=== PATIENT | female | born 1975 | race Two or more races ===

== ENCOUNTER 2019-05-11 02:09 | Emergency (ER) | payer MEDICAID ==
[~2019-05-11] VITALS: Ht 177.8 cm; Wt 49.9 kg
[2019-05-11] MEDS ORDERED: TRAMADOL HCL50 MG ORAL (02:12)
--- NOTE | 2019-05-11 02:20 | NUR ---
ED Nurse Note: Patient ERICH post fall at home has back pain and stomach pain 10/10.
[2019-05-11 02:21] VITALS: BP 132/78
[2019-05-11 02:29] LABS: BASOPHILS % (AUTO) 0.5 % (0.0-2.0); EOSINOPHILS % (AUTO) 0.6 % (0.0-3.0); HEMOGLOBIN 12.5 G/DL (12.0-16.0); LYMPHOCYTES % (AUTO) 18.8 % (20.0-45.0); MEAN CORPUSCULAR VOLUME 85 FL (80-99); NEUTROPHILS % (AUTO) 75.1 % (45.0-75.0); PLATELET COUNT 233 K/UL (150-450); RED CELL DISTRIBUTION WIDTH 12.6 % (11.6-14.8); WHITE BLOOD COUNT 6.5 K/UL (4.8-10.8)
[2019-05-11] MEDS ORDERED: Morphine Sulfate 4mg/ml Inj (IV USE ONLY) IVP ONE ×2 (02:30→03:00)
[2019-05-11] MEDS ORDERED: Isovue-300 100ml vial INJ PRN (02:30)
--- NOTE | 2019-05-11 02:33 | NUR ---
ED Nurse Note: Consent form for contrast was signed.
--- NOTE | 2019-05-11 02:43 | NUR ---
ED Nurse Note: urine specimen collected and sent down to lab.
[2019-05-11 02:49] LABS: ANION GAP 13 mmol/L (5-15); BLOOD UREA NITROGEN 19 mg/dL (7-18); CALCIUM 9.9 MG/DL (8.5-10.1); CARBON DIOXIDE 26 MMOL/L (21-32); CHLORIDE 103 MMOL/L (98-107); CREATININE 1.1 MG/DL (0.55-1.30); SODIUM 142 MMOL/L (136-145)
[2019-05-11 02:53] LABS: ALANINE AMINOTRANSFERASE 22 U/L (12-78); ALBUMIN 4.7 G/DL (3.4-5.0); ALBUMIN/GLOBULIN RATIO 1.3 (1.0-2.7); ALKALINE PHOSPHATASE 71 U/L (46-116); ASPARTATE AMINO TRANSFERASE 9 U/L (15-37); BILIRUBIN,TOTAL 0.3 MG/DL (0.2-1.0)
--- NOTE | 2019-05-11 03:27 | NUR ---
ED Nurse Note: Patient went down for CT with associate professor of radiology.
[2019-05-11 05:38] LABS: APPEARANCE,URINE CLEAR; BILIRUBIN, URINE NEGATIVE (NEGATIVE); COLOR,URINE PALE YELLOW; GLUCOSE, URINE (UA) NEGATIVE (NEGATIVE); KETONES,URINE NEGATIVE (NEGATIVE); LEUKOCYTE ESTERASE ,URINE 1+ (NEGATIVE); NITRITE,URINE NEGATIVE (NEGATIVE); PH,URINE 7 (4.5-8.0); PROTEIN,URINE 1+ (NEGATIVE); UROBILINOGEN,URINE NORMAL MG/DL (0.0-1.0)
[2019-05-11] MEDS ORDERED: Ketorolac 30mg Inj IV ONE (06:00)
[2019-05-11] MEDS ORDERED: LIDODERM700 M1 TOPIC (06:07)
[2019-05-11] MEDS ORDERED: PERCOCET 5-3251 EACH ORAL (06:07)
[2019-05-11] MEDS ORDERED: IBUPROFEN600 MG ORAL (06:07)
--- NOTE | 2019-05-11 06:18 | NUR ---
ED Nurse Note: Patient cleared for discharge, verbalized understanding of discharge instructions, IV removed, ID band removed. PAtient A&Ox4, ambulatory with pain, vital signs stable prior to departure. PAtient departed with all personal belongings.
[2019-05-11 06:19] VITALS: BP 132/78
--- NOTE | 2019-05-11 09:48 | Diagnostic Imaging Report ---
Indication: Posterior thoracic pain after slip and fall in the kitchen Technique: Spiral acquisitions obtained through the thoracic spine. No IV contrast utilized. Multiplanar reconstructions were generated. Total dose length product 427 mGycm. CTDIvol(s) 0.25x3, 14 mGy. Dose reduction achieved using automated exposure control Comparison: none Findings: Bony alignment is normal. Vertebral body heights are preserved. The disc spaces are preserved. No acute fractures. No dislocations. Small sclerotic focus within the T5 vertebral body probably represents a bone island. The included lungs are unremarkable. The included extra spinal soft tissues are unremarkable. Impression: No acute process T6 vertebral body sclerotic focus, most likely benign bone island This agrees with the preliminary interpretation provided overnight by [facility]. The CT scanner at [facility] is accredited by the [employer] and the scans are performed using protocols designed to limit radiation exposure to as low as reasonably achievable to attain images of sufficient resolution adequate for diagnostic evaluation.
--- NOTE | 2019-05-11 10:35 | Diagnostic Imaging Report ---
Clinical Indication: Abdominal pain after slip and fall in the kitchen Technique: No oral contrast utilized, per emergency room physician request IV administration nonionic contrast. Venous phase spiral acquisition obtained through the abdomen and pelvis. Multiplanar reconstructions were generated. Total dose length product 419.42 mGycm. CTDIvol(s) 8.63 mGy. Dose reduction achieved using automated exposure control Comparison: none Findings: The bones demonstrate bilateral L5 spondylolysis and grade 1 to L5 on S1 spondylolisthesis. There is secondary degenerative change of the L5-S1 disc. There is a slight compression fracture deformity of the L1 vertebral body with approximately 10% height loss anteriorly. No other evidence of acute fracture. No significant soft tissue contusion. The liver demonstrates multiple cysts and multiple subcentimeter low-attenuation lesions which are too small to characterize. Gallbladder, bile ducts, pancreas, spleen, adrenals, kidneys are unremarkable. No retroperitoneal or mesenteric mass or adenopathy. No pelvic mass or adenopathy. Varicosities are seen in the left adnexal region. What may be a normal appendix is equivocally visualized. No evidence of diverticulosis or diverticulitis. No small bowel distention. No free or loculated intraperitoneal gas or fluid is evident. The distal esophagus, stomach, duodenum are unremarkable. Impression: L1 compression fracture. Please refer to separate lumbar spine CT report for details. No other acute osseous trauma Bilateral L5 spondylolysis, grade 1 L5 on S1 spondylolisthesis and secondary degenerative disc disease No evidence of acute solid organ trauma or other osseous trauma Hepatic cysts. Subcentimeter low-attenuation liver lesions, too small to characterize, most likely benign simple cysts or bile hamartomas. No further follow-up necessary Left adnexal region varicosities, may indicate left ovarian venous insufficiency. Correlate with any clinical history of pelvic congestion syndrome that may be present This agrees with the preliminary interpretation provided overnight by [facility]. The CT scanner at [facility] is accredited by the [employer] and the scans are performed using protocols designed to limit radiation exposure to as low as reasonably achievable to attain images of sufficient resolution adequate for diagnostic evaluation.
--- NOTE | 2019-05-11 11:28 | Diagnostic Imaging Report ---
Indications: Lumbar pain after slip and fall in the kitchen Technique: Spiral acquisitions obtained through the lumbar spine. Multiplanar reconstructions were generated. No IV contrast utilized. Total dose length product 354.36 mGycm. CTDIvol(s) 10.54 mGy. Dose reduction achieved using automated exposure control Comparison: none Findings: There is an anterior wedge compression fracture of the L1 vertebral body, predominantly involving the anterior superior endplate and resulting in approximately 10% height loss. As there are fracture lines present suspected this is acute. There is minimal paraspinous edema in this region. The remaining vertebral body heights are preserved. No other acute fractures. There is bilateral L5 spondylolysis, with grade 1-2 L5 on S1 spondylolisthesis and secondary degenerative change of the L5-S1 disc. The sacrum is intact. No significant disc bulge or protrusion, spinal stenosis, or neural foraminal stenosis demonstrated. The included extra spinal soft tissues are unremarkable. Impression: Positive for L1 superior endplate and wedge compression fracture, described. Suspect acute. MRI may be useful for for complete characterization as clinically indicated Bilateral L5 spondylolysis. Associated grade 1-2 L5 on S1 spondylolisthesis and secondary degenerative disc disease at L5-S1. This agrees with the preliminary interpretation provided overnight by [facility]. The CT scanner at [facility] is accredited by the [employer] and the scans are performed using protocols designed to limit radiation exposure to as low as reasonably achievable to attain images of sufficient resolution adequate for diagnostic evaluation.
--- NOTE | 2019-05-13 06:50 | Emergency Room Report ---
History of Present Illness General Chief Complaint: Lower Back Pain or Injury Source: Patient Present Illness HPI 43-year-old female presents ED for evaluation. Brought in by EMS complaining low back pain status post trip and fall. States that she had a mechanical slip and fall tonight in her bathroom around 2 AM. Landed on her back. Denies hitting her head or LOC. Complaining of mid to lower back pain. Sharp, 10 out of 10, radiating to the abdomen. States she has history of chronic back pain. Denies bowel or bladder incontinence. Denies leg or motor weakness. No other aggravating relieving factors. Denies any other associated symptoms Allergies: Coded Allergies: No Known Allergies (Unverified , 05/11/19) Patient History Past Medical History: none Past Surgical History: none Pertinent Family History: none Social History: Denies: smoking, alcohol use, drug use Last Menstrual Period: 2017 Now: No Immunizations: UTD Reviewed Nursing Documentation: PMH: Agreed; PSxH: Agreed Nursing Documentation-PMH Past Medical History: No History, Except For Review of Systems All Other Systems: negative except mentioned in HPI Physical Exam Vital Signs Date Time Temp Pulse Resp B/P (MAP) Pulse Ox O2 Delivery O2 Flow Rate FiO2 05/11/19 02:09 98.8 82 14 132/78 (96) 98 Room Air Sp02 EP Interpretation: reviewed, normal General Appearance: alert, GCS 15, non-toxic, severe distress Head: normocephalic Eyes: bilateral eye normal inspection, bilateral eye PERRL ENT: normal ENT inspection Neck: normal inspection Respiratory: chest non-tender, lungs clear, normal breath sounds, speaking full sentences Cardiovascular #1: regular rate, rhythm, no edema Gastrointestinal: normal bowel sounds, soft, non-distended, no guarding, no rebound, tenderness Rectal: deferred Genitourinary: no CVA tenderness, vertebral tenderness Musculoskeletal: normal inspection Neurologic: alert, oriented x3, responsive, motor strength/tone normal, sensory intact, speech normal Psychiatric: normal inspection, anxious Skin: normal inspection Lymphatic: normal inspection Medical Decision Making Diagnostic Impression: Primary Impression: Compression fracture Additional Impression: Low back pain Qualified Codes: M54.5 - Low back pain ER Course Hospital Course 43-year-old F presents to ED with abdominal pain + back pain s/p fall Differential diagnosis includes- fx, dislocation, contusion Clinical course Patient placed on stretcher. After initial history and physical I ordered labs , pain medications and CT scan Labs - no leukocytosis, electrolytes ok, LFTs normal, UA unremarkable CT T spine shows DJD CT A/P no acute process CT L spine shows L1 compression fx discussed findings with patient. On reassessment pain improved. No focal neurological deficits. Walking in ED. Will discharge to home with appropriate pain management. Will provide orthopedic referral but patient states she does have an orthopedic to follow-up with I feel this is a highly complex case requiring extensive working including EKG/ Rhythm strip, Xray/CT/US, Blood/urine lab work, repeat exams while in ED, and administration of strong opiates/narcotics for pain control, admission to hospital or close patient follow up. Diagnosis - compression fx, low back pain Stable and discharged to home with Rx Motrin, Percocet, Lidoderm. Followup with PMD/ortho. Return to ED if symptoms recur or worsen Labs Test 05/11/19 02:21 05/11/19 05:30 White Blood Count 6.5 K/UL (4.8-10.8) Red Blood Count 4.50 M/UL (4.20-5.40) Hemoglobin 12.5 G/DL (12.0-16.0) Hematocrit 38.0 % (37.0-47.0) Mean Corpuscular Volume 85 FL (80-99) Mean Corpuscular Hemoglobin 27.8 PG (27.0-31.0) Mean Corpuscular Hemoglobin Concent 32.9 G/DL (32.0-36.0) Red Cell Distribution Width 12.6 % (11.6-14.8) Platelet Count 233 K/UL (150-450) Mean Platelet Volume 5.8 FL (6.5-10.1) Neutrophils (%) (Auto) 75.1 % (45.0-75.0) Lymphocytes (%) (Auto) 18.8 % (20.0-45.0) Monocytes (%) (Auto) 5.0 % (1.0-10.0) Eosinophils (%) (Auto) 0.6 % (0.0-3.0) Basophils (%) (Auto) 0.5 % (0.0-2.0) Sodium Level 142 MMOL/L (136-145) Potassium Level 4.0 MMOL/L (3.5-5.1) Chloride Level 103 MMOL/L (98-107) Carbon Dioxide Level 26 MMOL/L (21-32) Anion Gap 13 mmol/L (5-15) Blood Urea Nitrogen 19 mg/dL (7-18) Creatinine 1.1 MG/DL (0.55-1.30) Estimat Glomerular Filtration Rate > 60 mL/min (>60) Glucose Level 98 MG/DL (74-106) Calcium Level 9.9 MG/DL (8.5-10.1) Total Bilirubin 0.3 MG/DL (0.2-1.0) Aspartate Amino Transf (AST/SGOT) 9 U/L (15-37) Alanine Aminotransferase (ALT/SGPT) 22 U/L (12-78) Alkaline Phosphatase 71 U/L (46-116) Total Protein 8.4 G/DL (6.4-8.2) Albumin 4.7 G/DL (3.4-5.0) Globulin 3.7 g/dL Albumin/Globulin Ratio 1.3 (1.0-2.7) Lipase 98 U/L (73-393) Human Chorionic Gonadotropin, Qual Negative (NEGATIVE) Urine Color Pale yellow Urine Appearance Clear Urine pH 7 (4.5-8.0) Urine Specific [place] 1.010 (1.005-1.035) Urine Protein 1+ (NEGATIVE) Urine Glucose (UA) Negative (NEGATIVE) Urine Ketones Negative (NEGATIVE) Urine Blood 3+ (NEGATIVE) Urine Nitrite Negative (NEGATIVE) Urine Bilirubin Negative (NEGATIVE) Urine Urobilinogen Normal MG/DL (0.0-1.0) Urine Leukocyte Esterase 1+ (NEGATIVE) Urine RBC 0-2 /HPF (0 - 2) Urine WBC 5-10 /HPF (0 - 2) Urine Squamous Epithelial Cells Many /LPF (NONE/OCC) Urine Bacteria Few /HPF (NONE) CT/MRI/US Diagnostic Results CT/MRI/US Diagnostic Results #1: Imaging Test Ordered: CT T spine Impression DJD no acute process CT/MRI/US Diagnostic Results #2: Imaging Test Ordered: CT L spine Impression L1 compression fx CT/MRI/US Diagnostic Results #3: Imaging Test Ordered: CT A/P Impression no acute process Last Vital Signs Date Time Temp Pulse Resp B/P (MAP) Pulse Ox O2 Delivery O2 Flow Rate FiO2 05/11/19 06:19 98.8 88 14 132/78 98 Room Air Status: improved Disposition: HOME, SELF-CARE Condition: Stable Scripts Lidocaine (Lidoderm) 1 Each Adh..patch 1 PATCH TOPIC DAILY, #7 PATCH 0 Refills Patch(es) may remain in place for up to 12 hours in any 24-hour period. Prov: Colton Mann MD 05/11/19 Ibuprofen* (MOTRIN*) 600 Mg Tablet 600 MG ORAL Q8H PRN for For Pain, #30 TAB 0 Refills Prov: Colton Mann MD 05/11/19 Oxycodone/Acetaminophen 5-325* (PERCOCET 5-325 MG TABLET*) 1 Each Tablet 1 TAB ORAL Q6H PRN for For Pain, #12 TAB Prov: Colton Mann MD 05/11/19 Referrals: NON PHYSICIAN (PCP) Ehsan Naidu [facility] Open 24 hour /7 days a week by Appointment Only [address] [facility] [address] Patient Instructions: Spinal Compression Fracture Colton Mann MD May 13, 2019 06:50
== END 2019-05-11 06:14 | disposition home or self-care (01) ==
LOC: EDBD 02:09 → EMR 02:47
DX: M54.5 Low back pain (principal); S32.019A Unspecified fracture of first lumbar vertebra, initial encounter for closed fracture; W01.0XXA Fall on same level from slipping, tripping and stumbling without subsequent striking against object, initial encounter; Y92.9 Unspecified place or not applicable; M47.9 Spondylosis, unspecified; K76.89 Other specified diseases of liver; M51.37 Other intervertebral disc degeneration, lumbosacral region
CPT/HCPCS: 36415; 72128; 72131; 74177; 80053; 81003; 83690; 84703; 85025; 96374; 96375; 99284; J1885; J2270; J2405; Q9967